=== PATIENT | female | born 1980 | race Caucasian/White ===

== ENCOUNTER 2020-04-12 17:40 | Emergency (ER) | payer SELFPAY ==
--- NOTE | 2020-04-12 18:15 | EDM.PDOC ---
ED HPI GENERAL MEDICAL PROBLEM - General Chief Complaint: Skin Complaint Stated Complaint: NEED SUTURES/R CHEECK Time Seen by Provider: 04/12/20 18:08 Source of Information: Reports: Patient History Limitations: Reports: No Limitations - History of Present Illness INITIAL COMMENTS - FREE TEXT/NARRATIVE: 39-year-old female presents to the ED due to wound opening up adjacent to her right naris. She indicates she had a cystic lesion removed from this area by plastic surgeon Dr. Agustin Vargas in [place] about 7 to 8 days ago. She was due to see him tomorrow in clinic to have the sutures removed. Unfortunately the sutures appear to have broke her fractured in the center of a continuous suture and the wound has opened up or dehisced. Patient was not sure what to do. The area remains quite swollen.. No signs of infection. The wound is oozing serosanguineous material. Onset: Today, Sudden Onset Date: 04/12/20 Onset Time: 16:30 Duration: Minutes: Location: Reports: Face (Surgical wound right face adjacent to the right naris.) Quality: Reports: Other (Dehiscence) Severity: Moderate Improves with: Reports: None Worsens with: Reports: None Context: Reports: Other (The wound after having a cystic lesion removed from this area proximally a week ago by plastic surgeon Dr. Agustin Vargas in [place]. It sounds like her suture broke in the center of it continuous suture today and the wound opened up and dehisced.). Denies: Activity, Exercise, Lifting, Sick Contact, Trauma Associated Symptoms: Reports: No Other Symptoms Treatments [employer] SPECIALIST: Reports: Other (see below) - Related Data Allergies Allergy/AdvReac Type Severity Reaction Status Date / Time Sulfa (Sulfonamide Allergy Cannot Verified 04/12/20 17:53 Antibiotics) Remember Home Meds: Home Meds . [No Known Home Meds] 04/12/20 [History] Past Medical History - Past Health History Medical/Surgical History: Denies Medical/Surgical History - Past Surgical History Dermatological Surgical History: Reports: Other (See Below) Social & Family History - Tobacco Use Tobacco Use Status *Q: Current Every Day Tobacco User Years of Tobacco use: 23 Packs/Tins Daily: 1 - Caffeine Use Caffeine Use: Reports: Coffee - Recreational Drug Use Recreational Drug Use: No - Living Situation & Occupation Living situation: Reports: Single Occupation: Unemployed ED ROS GENERAL - Review of Systems Review Of Systems: See Below Constitutional: Reports: No Symptoms HEENT: Reports: Other (Surgical wound dehiscence right face adjacent to the nose) Respiratory: Reports: No Symptoms Cardiovascular: Reports: No Symptoms Endocrine: Reports: No Symptoms GI/Abdominal: Reports: No Symptoms : Reports: No Symptoms Musculoskeletal: Reports: No Symptoms Skin: Reports: No Symptoms Neurological: Reports: No Symptoms Psychiatric: Reports: No Symptoms Hematologic/Lymphatic: Reports: No Symptoms Immunologic: Reports: No Symptoms ED EXAM, SKIN/RASH Exam: See Below Exam Limited By: No Limitations General Appearance: Alert, WD/WN, Mild Distress, Other Nose: Other (Patient has had a recent surgical procedure performed on the right side of her face adjacent to the right nasal alae with 3 removal of a cystic lesion by plastic surgeon about 7 to 8 days ago. Unfortunately the wound broke open today and it looks like the suture fractured in the middle of a continuous suture and the wound opened up and is draining serosanguineous material. Patient was not sure what to do. The area remains quite swollen postoperatively and it was a great deal of tension on the sutures clinically.) Throat/Mouth: Normal Inspection, Normal Lips, Normal Teeth, Normal Oropharynx Course - Vital Signs Last Recorded V/S: Last Vital Signs Temp 36.8 C 04/12/20 17:50 Pulse 89 04/12/20 17:50 Resp 16 04/12/20 17:50 BP 135/83 04/12/20 17:50 Pulse Ox 98 04/12/20 17:50 - Radiology Interpretation Free Text/Narrative:: 39-year-old female presents to the ED for evaluation of wound dehiscence right side of her face where she had a cystic lesion removed adjacent to her right alae of her nose a week ago by plastic surgeon in [place]. It appears that these continuous suture fractured in the center of the nylon suture and the wound opened up her dehisced and is oozing a serosanguineous material. There is still a lot of postop surgical swelling in this area. I remove the upper and lower portions of the sutures since they were not doing any good and the upper portion was poking her in the right lower eyelid. The wound was cleansed and then topical antibiotic bacitracin placed and 2 Steri-Strips were placed across the wound until she can see the plastic surgeon tomorrow. Unfortunately this wound is going to have to heal by secondary intention and then possible wound revision in 3 months time. Departure - Departure Time of Disposition: 18:08 Disposition: Home, Self-Care 01 Condition: Fair Clinical Impression: Wound dehiscence - Discharge Information *PRESCRIPTION DRUG MONITORING PROGRAM REVIEWED*: Not Applicable *COPY OF PRESCRIPTION DRUG MONITORING REPORT IN PATIENT DARIN: Not Applicable Additional Instructions: Evaluation in the emergency room today in regards to suture fracture in wound right face adjacent to the right nose. Apparently a cystic lesion was removed from this area by plastic surgeon Dr. Agustin Vargas 7 to 8 days ago. Suture broke in the middle and the wound dehisced or opened up. I removed the remainder of the suture above and below. Steri-Strips were used to close the wound somewhat. The area remains very swollen and it will take some time for the swelling to go down likely close to 2 to 3 months before the surgical wound could be revised. Bacitracin ointment was placed on the wound and Steri-Strips were placed across it to provide some wound closure and prevent them from draining further blood and serous material overnight. Follow-up with Dr. Vargas in clinic tomorrow as planned. Sepsis Event Note (ED) - Evaluation Sepsis Screening Result: No Definite Risk - Focused Exam Vital Signs: Vital Signs Temp Pulse Resp BP Pulse Ox 04/12/20 17:50 36.8 C 89 16 135/83 98
== END 2020-04-12 18:35 | disposition home or self-care (01) ==
LOC: JD.ED 17:40
DX: T81.30XA Disruption of wound, unspecified, initial encounter (principal); Z72.0 Tobacco use; Z88.2 Allergy status to sulfonamides
CPT/HCPCS: 99282

== ENCOUNTER 2020-07-11 12:41 | Emergency (ER) | payer BC ==
[2020-07-11] MEDS ORDERED: Ketorolac 60 MG/2 ML SDV IM ONE (12:58)
[2020-07-11] MEDS ORDERED: HYDROmorphone 1 MG/ML Syringe IM ONE (12:58)
--- NOTE | 2020-07-11 13:13 | EDM.PDOC ---
ED HPI GENERAL MEDICAL PROBLEM - General Chief Complaint: Lower Extremity Injury/Pain Stated Complaint: RT LEG PAIN Time Seen by Provider: 07/11/20 12:45 Source of Information: Reports: Patient, RN Notes Reviewed History Limitations: Reports: No Limitations - History of Present Illness INITIAL COMMENTS - FREE TEXT/NARRATIVE: Patient is a 39-year-old female presenting to the emergency department with complaints of aching in her bilateral buttocks shooting down both of her legs, with the right being worse than the left. She has a history of low back pain and states that she has a bulging disc at L5-S1. She had a cortisone injection done about a week ago at the pain clinic in [place]. She thought it was working, however the last 2 days she has been having pain. She has had no recent falls or injuries. Denies any bowel or bladder dysfunction. She took ibuprofen 200 mg a few hours prior to coming to ER. bilateral legs Pain Score (Numeric/FACES): 10 - Related Data Allergies Allergy/AdvReac Type Severity Reaction Status Date / Time Sulfa (Sulfonamide Allergy Cannot Verified 07/11/20 12:55 Antibiotics) Remember Home Meds: Home Meds Gabapentin [Neurontin] 100 mg PO TID PRN #12 cap 07/11/20 [Rx] predniSONE [Prednisone] 20 mg PO ASDIRECTED #13 tablet 07/11/20 [Rx] Past Medical History - Past Health History Medical/Surgical History: Denies Medical/Surgical History - Past Surgical History Dermatological Surgical History: Reports: Other (See Below) Social & Family History - Tobacco Use Tobacco Use Status *Q: Current Every Day Tobacco User Years of Tobacco use: 20 Packs/Tins Daily: 0.5 - Caffeine Use Caffeine Use: Reports: Coffee - Recreational Drug Use Recreational Drug Use: No - Living Situation & Occupation Living situation: Reports: Single Occupation: Unemployed Review of Systems - Review of Systems Review Of Systems: Comprehensive ROS is negative, except as noted in HPI. ED EXAM, GENERAL - Physical Exam Exam: See Below General Appearance: Alert, Moderate Distress, Other (Tearful) Respiratory/Chest: No Respiratory Distress, Lungs Clear, Normal Breath Sounds, No Accessory Muscle Use, Chest Non-Tender Cardiovascular: Normal Peripheral Pulses, Regular Rate, Rhythm, No Edema, No Gallop, No JVD, No Murmur, No Rub Back Exam: Normal Inspection, Full Range of Motion. No: Muscle Spasm, Paraspinal Tenderness, Vertebral Tenderness Neurological: Alert, Oriented, CN II-XII Intact, Normal Cognition, Normal Gait, Normal Reflexes, No Motor/Sensory Deficits Psychiatric: Normal Affect, Normal Mood Skin Exam: Warm, Dry, Intact, Normal Color, No Rash Course - Vital Signs Last Recorded V/S: Last Vital Signs Temp 98.1 F 07/11/20 12:49 Pulse 77 07/11/20 12:49 Resp 22 H 07/11/20 12:49 BP 141/85 H 07/11/20 12:49 Pulse Ox 100 07/11/20 12:49 - Orders/Labs/Meds Meds: Medications Discontinued Medications Generic Name Dose Route Start Last Admin Trade Name Kelvinq PRN Reason Stop Dose Admin Gabapentin 100 mg 07/11/20 13:50 Gabapentin 100 Mg Cap PO 07/11/20 13:51 ONETIME ONE Hydromorphone HCl 1 mg 07/11/20 12:58 07/11/20 13:05 Hydromorphone 1 Mg/Ml Syringe IM 07/11/20 12:59 1 mg ONETIME ONE Administration Ketorolac Tromethamine 60 mg 07/11/20 12:58 07/11/20 13:05 Ketorolac 60 Mg/2 Ml Sdv IM 07/11/20 12:59 60 mg ONETIME ONE Administration Prednisone 40 mg 07/11/20 13:51 Prednisone 20 Mg Tab PO 07/11/20 13:52 ONETIME ONE - Re-Assessments/Exams Free Text/Narrative Re-Assessment/Exam: Patient is a 39 year old female presenting to the ER with c/o aching to her bilateral buttocks with shooting pains down the back he her legs, the right being worse than the left. She has a hx of low back pain with a known bulging disc at L5-S1. She had a cortisone injection done at the pain clinic in [place] 1 week ago which was initially working; however, this pain has been occuring over the last 2 days. On exam, she has no vertebral tenderness, parapsinal tenderness, or tenderness over her SI joints. The pain she is experiencing is likely neuropathic pain. I have ordered Toradol 60mg IM and Dilaudid 1mg IM. 07/11/20 13:55 Patient did get some relief from the medications given but is still have some shooting pains. I will start her on a tapering dose of prednisone as well as gabapentin for nerve pain. She should contact the pain clinic first thing tomorrow morning. She is in agreement with this plan. Discharge instructions as documented. Departure - Departure Time of Disposition: 13:56 Disposition: Home, Self-Care 01 Condition: Good Clinical Impression: Sciatica associated with disorder of lumbar spine - Discharge Information *PRESCRIPTION DRUG MONITORING PROGRAM REVIEWED*: Yes *COPY OF PRESCRIPTION DRUG MONITORING REPORT IN PATIENT DARIN: No Prescriptions: Gabapentin [Neurontin] 100 mg PO TID PRN #12 cap PRN Reason: Pain predniSONE [Prednisone] 20 mg PO ASDIRECTED #13 tablet Instructions: Sciatica Referrals: Fredi Hall NP [Primary Care Provider] - Forms: ED Department Discharge Additional Instructions: You were seen in the emergency department today for dull aching pain in your bilateral buttocks and down the back of your legs after having a steroid injection about 1 week ago. On the ER, you received an injection of Dilaudid and Toradol for pain. This did improve your pain. As we discussed, your pain is likely nerve related. You been started on prednisone which is a steroid as well as gabapentin which works well for nerve pain. Take these medications as prescribed. You may use Tylenol 1000 mg every 6 hours in addition to this. Applying heat to the area may also be beneficial. Recommend contacting the pain management clinic in [place] first thing tomorrow morning to discuss your symptoms. Return to ER for any new or worsening symptoms of concern. Sepsis Event Note (ED) - Evaluation Sepsis Screening Result: No Definite Risk - Focused Exam Vital Signs: Vital Signs Temp Pulse Resp BP Pulse Ox 07/11/20 12:49 98.1 F 77 22 H 141/85 H 100
[2020-07-11] MEDS ORDERED: Gabapentin 100 MG Cap PO ONE (13:50)
[2020-07-11] MEDS ORDERED: predniSONE 20 MG Tab PO ONE (13:51)
== END 2020-07-11 14:22 | disposition home or self-care (01) ==
LOC: JD.ED 12:41
DX: M54.32 Sciatica, left side (principal); M54.31 Sciatica, right side; M51.9 Unspecified thoracic, thoracolumbar and lumbosacral intervertebral disc disorder; Z88.2 Allergy status to sulfonamides; Z72.0 Tobacco use
CPT/HCPCS: 96372; 99283; A9270; J1170; J1885; J7512

== ENCOUNTER 2020-07-11 15:08 | Emergency (ER) | payer BC ==
[2020-07-11] MEDS ORDERED: Sodium Chloride 0.9% 10 ML Syringe FLUSH PRN (15:11)
[2020-07-11] MEDS ORDERED: HYDROmorphone 0.5 MG/0.5 ML Syringe IVPUSH ONE (15:12)
--- NOTE | 2020-07-11 15:20 | EDM.PDOC ---
ED HPI GENERAL MEDICAL PROBLEM - General Chief Complaint: Back Pain or Injury Stated Complaint: RT LEG PAIN Time Seen by Provider: 07/11/20 15:10 Source of Information: Reports: Patient, RN Notes Reviewed History Limitations: Reports: No Limitations - History of Present Illness INITIAL COMMENTS - FREE TEXT/NARRATIVE: Patient is a 39-year-old female returning to the emergency department at my request with complaints of pain to her bilateral buttocks and bilateral legs, as well as numbness to the posterior aspect of her right leg. She had a cortisone injection for chronic back pain approximately 1 week ago. She developing an aching pain in her bilateral buttocks and down her bilateral legs a few days ago. She has no bowel or bladder dysfunction. She was discharged fro m here aproximately 1 hour ago after having relief from toradol and dilaudid IM. She was started on prednisone and gabapentin. She states that when she got out to her vehicle and sat down, the pain returned. She also c/o of numbness to her right posteriod leg that was not there before. I requested she return for further workup. Leg Pain Score (Numeric/FACES): 9 - Related Data Allergies Allergy/AdvReac Type Severity Reaction Status Date / Time Sulfa (Sulfonamide Allergy Cannot Verified 07/11/20 15:27 Antibiotics) Remember Home Meds: Home Meds Gabapentin [Neurontin] 100 mg PO TID PRN #12 cap 07/11/20 [Rx] predniSONE [Prednisone] 20 mg PO ASDIRECTED #13 tablet 07/11/20 [Rx] Past Medical History - Past Health History Medical/Surgical History: Denies Medical/Surgical History - Past Surgical History Dermatological Surgical History: Reports: Other (See Below) Social & Family History - Caffeine Use Caffeine Use: Reports: Coffee - Living Situation & Occupation Living situation: Reports: Single Occupation: Unemployed ED ROS GENERAL - Review of Systems Review Of Systems: See Below Constitutional: Reports: No Symptoms HEENT: Reports: No Symptoms Respiratory: Reports: No Symptoms Cardiovascular: Reports: No Symptoms Endocrine: Reports: No Symptoms GI/Abdominal: Reports: No Symptoms : Reports: No Symptoms Musculoskeletal: Reports: Leg Pain (aching pain down bilateral posterior legs. Rt worse than left.) Skin: Reports: No Symptoms Neurological: Reports: No Symptoms Psychiatric: Reports: No Symptoms Hematologic/Lymphatic: Reports: No Symptoms Immunologic: Reports: No Symptoms ED EXAM,LOWER BACK PAIN/INJURY - Physical Exam Exam: See Below Exam Limited By: No Limitations General Appearance: Alert, Mild Distress Respiratory/Chest: No Respiratory Distress, Lungs Clear, Normal Breath Sounds, No Accessory Muscle Use, Chest Non-Tender Cardiovascular: Normal Peripheral Pulses, Regular Rate, Rhythm, No Edema, No Gallop, No JVD, No Murmur, No Rub Back Exam: Normal Inspection. No: Paraspinal Tenderness, Vertebral Tenderness Extremities: Normal Inspection, Normal Range of Motion, Non-Tender, No Pedal Edema, Normal Capillary Refill Neurological: Alert, Normal Mood/Affect, Normal Dorsiflexion, CN II-XII Intact, Normal Plantar Flexion, Normal Gait, Normal Reflexes, No Motor/Sensory Deficits, Oriented x 3 Psychiatric: Normal Affect, Normal Mood Course - Vital Signs Last Recorded V/S: Last Vital Signs Temp 96 F L 07/11/20 15:10 Pulse 88 07/11/20 17:20 Resp 16 07/11/20 17:20 BP 138/78 07/11/20 17:20 Pulse Ox 98 07/11/20 17:20 - Orders/Labs/Meds Labs: Laboratory Tests 07/11/20 07/11/20 Range/Units 15:20 15:20 WBC 7.28 (3.98-10.04) K/mm3 RBC 5.78 H (3.98-5.22) M/mm3 Hgb 17.6 H (11.2-15.7) gm/dl Hct 49.9 H (34.1-44.9) % MCV 86.3 (79.4-94.8) fl MCH 30.4 (25.6-32.2) pg MCHC 35.3 (32.2-35.5) g/dl RDW Std Deviation 39.6 (36.4-46.3) fL Plt Count 235 (182-369) K/mm3 MPV 10.2 (9.4-12.3) fl Neut % (Auto) 64.9 (34.0-71.1) % Lymph % (Auto) 27.2 (19.3-51.7) % Floyd % (Auto) 7.0 (4.7-12.5) % Eos % (Auto) 0.5 L (0.7-5.8) Baso % (Auto) 0.3 (0.1-1.2) % Neut # (Auto) 4.72 (1.56-6.13) K/mm3 Lymph # (Auto) 1.98 (1.18-3.74) K/mm3 Floyd # (Auto) 0.51 H (0.24-0.36) K/mm3 Eos # (Auto) 0.04 (0.04-0.36) K/mm3 Baso # (Auto) 0.02 (0.01-0.08) K/mm3 Sodium 141 (136-145) mEq/L Potassium 3.7 (3.5-5.1) mEq/L Chloride 103 (98-107) mEq/L Carbon Dioxide 22 (21-32) mEq/L Anion Gap 19.7 H (5-15) BUN 14 (7-18) mg/dL Creatinine 1.0 (0.55-1.02) mg/dL Est Cr Clr Drug Dosing TNP Estimated GFR (MDRD) > 60 (>60) mL/min BUN/Creatinine Ratio 14.0 (14-18) Glucose 125 H (74-106) mg/dL Calcium 9.0 (8.5-10.1) mg/dL Total Bilirubin 1.0 (0.2-1.0) mg/dL AST 36 (15-37) U/L ALT 39 (14-59) U/L Alkaline Phosphatase 104 (46-116) U/L C-Reactive Protein <0.2 (<1.0) mg/dL Total Protein 8.1 (6.4-8.2) g/dl Albumin 4.5 (3.4-5.0) g/dl Globulin 3.6 gm/dL Albumin/Globulin Ratio 1.3 (1-2) Meds: Medications Discontinued Medications Generic Name Dose Route Start Last Admin Trade Name Freq PRN Reason Stop Dose Admin Hydromorphone HCl 0.5 mg 07/11/20 15:12 07/11/20 15:22 Hydromorphone 0.5 Mg/0.5 Ml Syringe IVPUSH 07/11/20 15:13 0.5 mg ONETIME ONE Administration Sodium Chloride 1,000 mls @ 999 mls/hr 07/11/20 16:02 07/11/20 16:07 Normal Saline IV 07/11/20 17:02 999 mls/hr NOW STA Administration Sodium Chloride 10 ml 07/11/20 15:11 07/11/20 15:22 Sodium Chloride 0.9% 10 Ml Syringe FLUSH 10 ml ASDIRECTED PRN Administration Keep Vein Open - Re-Assessments/Exams Free Text/Narrative Re-Assessment/Exam: Patient is a 39-year-old female returning to the emergency department with complaints of pain/"ache" to her bilateral posterior legs, right being worse than left as well as onset of numbness to the posterior aspect of her right leg. She denies any pain to her back. She was discharged from this facility but 1 hour ago. She called me and stated that when she got out to her vehicle the pain returned and now she has a numbness in her posterior leg. Recommended that she return to the ER for further evaluation. I have ordered blood work, CT scan of the lumbar spine with contrast, and Dilaudid 0.5 mg IV. 07/11/20 17:09 CT of the lumbar spine with IV contrast shows a large posterior disc herniation L5-S1 extends 10 mm inferior to the superior endplate of S1 with posterior disp lacement and compression of the right S1 nerve root as it exits from the thecal sac and possible impingement of the left S1 nerve root. Review of MRI completed in April showed minimal left sided nerve root compression. The nerve compression appears to be more significant now than it was back in April, however radiologist did not directly comment on this. Patient's pain has improved with the Dilaudid 0.5 mg. She states as long as she is not sitting it is tolerable. Going to provide an [facility] prescription for Percocet 5/325 for pain. She was not able to make it to the pharmacy, th erefore she does not have her gabapentin, however this should hold her over until tomorrow. Recommend that she contact the pain clinic in [place] as well as her back specialist, Dr. Herrera, tomorrow. Discussed return precautions. Discharge instructions as document. Departure - Departure Time of Disposition: 17:09 Disposition: Home, Self-Care 01 Condition: Good Clinical Impression: Lumbar nerve root compression - Discharge Information *PRESCRIPTION DRUG MONITORING PROGRAM REVIEWED*: Yes *COPY OF PRESCRIPTION DRUG MONITORING REPORT IN PATIENT DARIN: No Instructions: Radicular Pain Referrals: Fredi Hall NP [Primary Care Provider] - Rui Herrera MD [Ordering Only Provider] - Forms: ED Department Discharge Additional Instructions: You were reevaluated in the emergency department for return of pain to bilateral legs as well as numbness to your right posterior leg. CT scan with IV contrast was completed of your lumbar spine. This did show compression of the right S1 nerve root as well as possible impingement of the left S1 nerve root. This would be the cause of your symptoms. While in the ER, you received Dilaudid for pain. You have been provided a prescription for Percocet for pain. Recommend routine Tylenol administration. For pain not relieved by this, you may take 1 Percocet. Ensure that you do not exceed 4000 mg of Tylenol from all sources in a 24-hour period. service center supervisor the prednisone and gabapentin from the pharmacy tomorrow. Recommend contacting your pain specialist as well as Dr. Herrera tomorrow to discuss the worsening of your symptoms. You should experience any new or worsening symptoms of concern, specifically incontinence or inability to empty bowel or bladder, please return to the emergency department for reevaluation.
[2020-07-11] MEDS ORDERED: Sodium Chloride 0.9% 1,000 ML IV STA (16:02)
--- NOTE | 2020-07-12 08:03 | CT ---
CT lumbar spine Technique: Multiple axial sections were obtained from the mid T11 level inferiorly through the L5-S1 level. Reconstructed coronal and sagittal images were obtained. Comparison: Prior MRI lumbar spine study of 04/30/19. Limitations: Mild motion artifact is noted. Findings: T11-12 through L3-4: Posterior disc are preserved. No central canal stenosis or discrete neural foraminal stenosis is seen. L4-5: Posterior disc are maintained. No central canal stenosis is noted. L5-S1: Posterior disc space narrowing is seen. Disc herniation is seen posteriorly. This disc herniation appears to have slightly increased in size from prior exam. There is some calcification within the posterior disc. Finding is asymmetric to the right side. Finding causes mild central canal stenosis. Left neural foramen is slightly narrowed. Right neural foramen is patent. Right S1 nerve root is displaced posteriorly. Left S1 nerve root is also touched by the disc herniation. No acute fracture or abnormal subluxation is seen. Surgical clips are noted from prior cholecystectomy. Impression: 1. Large disc herniation at L5-S1 which extends posteriorly and asymmetric to the right side on current study. Right S1 nerve root appearing to be posteriorly displaced on current study. Left S1 nerve root touches the bulging disc. This disc herniation has increased in size from previous study. 2. Disc space narrowing at L5-S1. Diagnostic code #3 I agree with preliminary report from [facility], finalized on 07/01/20, 5:30 PM CDT, code #1
== END 2020-07-11 17:33 | disposition home or self-care (01) ==
LOC: JD.ED 15:08
DX: G54.4 Lumbosacral root disorders, not elsewhere classified (principal); Z88.2 Allergy status to sulfonamides
CPT/HCPCS: 36415; 72132; 80053; 85025; 86140; 96374; 99284; J1170; J7030